=== PATIENT | female | born 1950 | race Caucasian/White ===

== ENCOUNTER 2022-01-31 21:29 | Emergency (ER) | payer SELFPAY ==
[~2022-01-31] VITALS: Ht 165.1 cm; Wt 70.3 kg
[2022-01-31 21:33] VITALS: BP 130/65
--- NOTE | 2022-01-31 21:34 | NUR ---
Patient taken to Chair C.
[2022-01-31 21:35] VITALS: BP 130/65
--- NOTE | 2022-01-31 21:48 | NUR ---
Patient walked out ER.
--- NOTE | 2022-01-31 21:49 | NUR ---
PATIENT LEFT WITHOUT BEING SEEN BY DR. Navarro. NO FURTHER CARE PROVIDED FOR PATIENT.
== END 2022-01-31 21:49 | disposition left against medical advice (07) ==
LOC: MED 21:29
DX: F10.129 Alcohol abuse with intoxication, unspecified (principal); Y90.9 Presence of alcohol in blood, level not specified; Z53.21 Procedure and treatment not carried out due to patient leaving prior to being seen by health care provider